=== PATIENT | male | born 1990 | race Caucasian/White ===

== ENCOUNTER 2021-01-15 13:39 | Emergency (ER) | payer SELFPAY ==
[~2021-01-15] VITALS: Ht 180.3 cm; Wt 77.1 kg
[2021-01-15 13:52] VITALS: Ht 180.3 cm; Wt 77.1 kg
[2021-01-15 15:29] VITALS: BP 120/74
== END 2021-01-15 15:29 | disposition home or self-care (01) ==
LOC: ED 13:39
DX: M54.5 Low back pain (principal); Z98.890 Other specified postprocedural states